=== PATIENT | male | born 1945 | race Two or more races ===

== ENCOUNTER 2018-06-04 11:10 | Outpatient (CLI) | payer MEDICARE | END 2018-06-04 13:10 | disposition home or self-care (01) | LOC: ECT 11:10 | DX: F32.3 Major depressive disorder, single episode, severe with psychotic features (principal); I10 Essential (primary) hypertension; E11.9 Type 2 diabetes mellitus without complications ==

== ENCOUNTER 2018-06-24 06:45 | Outpatient (RCR) | payer MEDICARE ==
[~2018-06-24] VITALS: Ht 162.6 cm; Wt 64.0 kg
[2018-06-24] MEDS ORDERED: Methohexital Sodium Syr 100mg/10ml IVP ONE (06:46)
[2018-06-24] MEDS ORDERED: Methohexital Sodium 500mg Vial IVP ONE (06:46)
[2018-06-24] MEDS ORDERED: Succinylcholine 20mg/ml 10ml vial ONE ×2 (06:46)
[2018-06-24] MEDS ORDERED: NS 500ML ONE ×2 (06:46)
[2018-06-24 11:11] VITALS: BP 156/90
[2018-06-24 11:25] VITALS: BP 177/86
[2018-06-24 11:30] VITALS: BP 168/88
[2018-06-24 11:35] VITALS: BP 168/86
[2018-06-24 11:40] VITALS: BP 170/86
[2018-06-24 12:47] VITALS: BP 156/90
[2018-06-26 10:21] VITALS: BP 144/91
[2018-06-26 10:40] VITALS: BP 193/94
[2018-06-26 10:45] VITALS: BP 178/96
[2018-06-26 10:50] VITALS: BP 175/88
[2018-06-26 10:55] VITALS: BP 161/95
[2018-06-29] MEDS ORDERED: Succinylcholine 20mg/ml 10ml vial ONE (06:00)
[2018-06-29] MEDS ORDERED: NS 500ML ONE (06:00)
[2018-06-29] MEDS ORDERED: Methohexital Sodium Syr 100mg/10ml IVP ONE (06:00)
[2018-06-29 10:41] VITALS: BP 152/80
[2018-06-29] MEDS ORDERED: Atropine Sulfate 0.4mg/ml inj IVP PRN (10:50)
[2018-06-29 11:00] VITALS: BP 156/89
[2018-06-29 11:05] VITALS: BP 146/85
[2018-06-29 11:10] VITALS: BP 134/86
[2018-06-29 11:15] VITALS: BP 143/86
[2018-07-01] MEDS ORDERED: Methohexital Sodium Syr 100mg/10ml IVP ONE (07:00)
[2018-07-01] MEDS ORDERED: Succinylcholine 20mg/ml 10ml vial ONE (07:00)
[2018-07-01] MEDS ORDERED: NS 500ML ONE (07:00)
[2018-07-01 11:18] VITALS: BP 143/83
[2018-07-01 11:35] VITALS: BP 166/78
[2018-07-01 11:40] VITALS: BP 166/80
[2018-07-01 11:45] VITALS: BP 159/76
[2018-07-01 11:50] VITALS: BP 158/74
[2018-07-03] MEDS ORDERED: Methohexital Sodium Syr 100mg/10ml IVP ONE (07:00)
[2018-07-03] MEDS ORDERED: NS 500ML ONE (07:00)
[2018-07-03] MEDS ORDERED: Succinylcholine 20mg/ml 10ml vial ONE (07:00)
[2018-07-03 10:00] VITALS: BP 151/89
[2018-07-03] MEDS ORDERED: Atropine Sulfate 0.4mg/ml inj IVP PRN (10:23)
[2018-07-03 10:25] VITALS: BP 170/95
[2018-07-03 10:30] VITALS: BP 160/97
[2018-07-03 10:35] VITALS: BP 158/95
[2018-07-03 10:40] VITALS: BP 153/87
== END 2018-07-05 | disposition home or self-care (01) ==
LOC: ECT 06:45
DX: F32.3 Major depressive disorder, single episode, severe with psychotic features (principal); I10 Essential (primary) hypertension; E11.9 Type 2 diabetes mellitus without complications
CPT/HCPCS: 90870; J0330; J3490; J7040

== ENCOUNTER 2018-07-06 06:17 | Outpatient (RCR) | payer MEDICARE ==
[~2018-07-06] VITALS: Ht 162.6 cm; Wt 64.0 kg
[2018-07-06] MEDS ORDERED: Succinylcholine 20mg/ml 10ml vial ONE ×2 (06:18)
[2018-07-06] MEDS ORDERED: Methohexital Sodium Syr 100mg/10ml IVP ONE ×2 (06:18)
[2018-07-06] MEDS ORDERED: NS 500ML ONE ×2 (06:18)
[2018-07-06 09:50] VITALS: BP 145/90
[2018-07-06 10:05] VITALS: BP 200/83
[2018-07-06 10:10] VITALS: BP 187/96
[2018-07-06 10:15] VITALS: BP 182/89
[2018-07-06 10:20] VITALS: BP 169/98
[2018-07-07] MEDS ORDERED: Methohexital Sodium Syr 100mg/10ml IVP ONE (10:00)
[2018-07-07] MEDS ORDERED: NS 500ML ONE (10:00)
[2018-07-07] MEDS ORDERED: Succinylcholine 20mg/ml 10ml vial ONE (10:00)
[2018-07-08 10:54] VITALS: BP 164/92
[2018-07-08 11:10] VITALS: BP 185/98
[2018-07-08 11:15] VITALS: BP 170/97
[2018-07-08 11:20] VITALS: BP 170/91
[2018-07-08 11:25] VITALS: BP 168/85
[2018-07-10] MEDS ORDERED: Methohexital Sodium Syr 100mg/10ml IVP ONE (08:00)
[2018-07-10] MEDS ORDERED: NS 500ML ONE (08:00)
[2018-07-10] MEDS ORDERED: Succinylcholine 20mg/ml 10ml vial ONE (08:00)
[2018-07-10 09:37] VITALS: BP 143/80
[2018-07-10 09:52] VITALS: BP 192/91
[2018-07-10 09:57] VITALS: BP 171/87
[2018-07-10 10:02] VITALS: BP 163/80
[2018-07-10 10:07] VITALS: BP 163/80
[2018-07-13] MEDS ORDERED: Succinylcholine 20mg/ml 10ml vial ONE (07:00)
[2018-07-13] MEDS ORDERED: NS 500ML ONE (07:00)
[2018-07-13] MEDS ORDERED: Methohexital Sodium Syr 100mg/10ml IVP ONE (07:00)
[2018-07-13 10:21] VITALS: BP 146/80
[2018-07-13 10:40] VITALS: BP 171/89
[2018-07-13 10:45] VITALS: BP 161/88
[2018-07-13 10:50] VITALS: BP 153/81
[2018-07-13 10:55] VITALS: BP 162/79
[2018-07-15] MEDS ORDERED: Succinylcholine 20mg/ml 10ml vial ONE (08:00)
[2018-07-15] MEDS ORDERED: NS 500ML ONE (08:00)
[2018-07-15] MEDS ORDERED: Methohexital Sodium Syr 100mg/10ml IVP ONE (08:00)
[2018-07-15 11:14] VITALS: BP 141/81
[2018-07-15 11:30] VITALS: BP 161/83
[2018-07-15 11:35] VITALS: BP 161/76
[2018-07-15 11:40] VITALS: BP 161/76
[2018-07-15 11:45] VITALS: BP 170/74
[2018-07-20] MEDS ORDERED: NS 500ML ONE (07:00)
[2018-07-20] MEDS ORDERED: Methohexital Sodium Syr 100mg/10ml IVP ONE (07:00)
[2018-07-20] MEDS ORDERED: Succinylcholine 20mg/ml 10ml vial ONE (07:00)
[2018-07-20 10:27] VITALS: BP 153/94
[2018-07-20 10:40] VITALS: BP 201/98
[2018-07-20 10:45] VITALS: BP 176/90
[2018-07-20 10:50] VITALS: BP 179/89
[2018-07-20 10:55] VITALS: BP 174/92
[2018-07-22] MEDS ORDERED: NS 500ML ONE (07:00)
[2018-07-22] MEDS ORDERED: Methohexital Sodium Syr 100mg/10ml IVP ONE (07:00)
[2018-07-22] MEDS ORDERED: Succinylcholine 20mg/ml 10ml vial ONE (07:00)
[2018-07-22 10:39] VITALS: BP 154/93
[2018-07-22 10:55] VITALS: BP 189/91
[2018-07-22 11:00] VITALS: BP 184/86
[2018-07-22 11:05] VITALS: BP 169/88
[2018-07-22 11:10] VITALS: BP 174/95
[2018-07-29 09:59] VITALS: BP 149/80
[2018-07-29 10:15] VITALS: BP 180/87
[2018-07-29 10:20] VITALS: BP 160/79
[2018-07-29 10:25] VITALS: BP 151/78
[2018-07-29 10:30] VITALS: BP 154/76
== END 2018-08-04 | disposition home or self-care (01) ==
LOC: ECT 06:17
DX: F32.3 Major depressive disorder, single episode, severe with psychotic features (principal)
CPT/HCPCS: 90870; J0330; J7040

== ENCOUNTER 2018-08-05 06:59 | Outpatient (RCR) | payer MEDICARE ==
[~2018-08-05] VITALS: Ht 30.5 cm; Wt 0.5 kg
[2018-08-05] MEDS ORDERED: Succinylcholine 20mg/ml 10ml vial ONE ×3 (07:00)
[2018-08-05] MEDS ORDERED: NS 500ML ONE ×3 (07:00)
[2018-08-05] MEDS ORDERED: Methohexital Sodium Syr 100mg/10ml IVP ONE ×3 (07:00)
[2018-08-05 10:14] VITALS: BP 144/91
[2018-08-05 10:30] VITALS: BP 176/94
[2018-08-05 10:35] VITALS: BP 168/98
[2018-08-05 10:40] VITALS: BP 158/85
[2018-08-05 10:45] VITALS: BP 161/93
[2018-08-10] MEDS ORDERED: Succinylcholine 20mg/ml 10ml vial ONE (07:00)
[2018-08-10] MEDS ORDERED: Methohexital Sodium Syr 100mg/10ml IVP ONE (07:00)
[2018-08-10] MEDS ORDERED: NS 500ML ONE (07:00)
[2018-08-10 10:05] VITALS: BP 150/82
[2018-08-10 10:20] VITALS: BP 174/86
[2018-08-10 10:25] VITALS: BP 160/84
[2018-08-10 10:30] VITALS: BP 167/83
[2018-08-10 10:35] VITALS: BP 161/82
[2018-08-17] MEDS ORDERED: Methohexital Sodium Syr 100mg/10ml IVP ONE (06:00)
[2018-08-17] MEDS ORDERED: Succinylcholine 20mg/ml 10ml vial ONE (06:00)
[2018-08-17] MEDS ORDERED: NS 500ML ONE (06:00)
[2018-08-17 09:36] VITALS: BP 145/81
[2018-08-17 09:50] VITALS: BP 168/86
[2018-08-17 09:55] VITALS: BP 156/89
[2018-08-17 10:00] VITALS: BP 163/73
[2018-08-17 10:05] VITALS: BP 155/71
[2018-08-21] VITALS (10 sets, daily range): BP systolic 138–178; BP diastolic 71–85
[2018-08-21] MEDS ORDERED: NS 500ML ONE (08:00)
[2018-08-21] MEDS ORDERED: Succinylcholine 20mg/ml 10ml vial ONE (08:00)
[2018-08-21] MEDS ORDERED: Methohexital Sodium Syr 100mg/10ml IVP ONE (08:00)
[2018-08-25 09:39] VITALS: BP 158/83
[2018-08-26] MEDS ORDERED: Succinylcholine 20mg/ml 10ml vial ONE (09:00)
[2018-08-26] MEDS ORDERED: Methohexital Sodium Syr 100mg/10ml IVP ONE (09:00)
[2018-08-26] MEDS ORDERED: NS 500ML ONE (09:00)
[2018-08-26 09:56] VITALS: BP 205/99
[2018-08-26 10:01] VITALS: BP 172/81
[2018-08-26 10:06] VITALS: BP 171/78
[2018-08-26 10:11] VITALS: BP 163/76
== END 2018-09-04 | disposition home or self-care (01) ==
LOC: ECT 06:59
DX: F32.3 Major depressive disorder, single episode, severe with psychotic features (principal)
CPT/HCPCS: 90870; J0330; J7040

== ENCOUNTER 2018-09-07 05:06 | Outpatient (RCR) | payer MEDICARE ==
[~2018-09-07] VITALS: Ht 162.6 cm; Wt 64.0 kg
[2018-09-07] MEDS ORDERED: Succinylcholine 20mg/ml 10ml vial ONE (05:07)
[2018-09-07] MEDS ORDERED: Methohexital Sodium Syr 100mg/10ml IVP ONE (05:07)
[2018-09-07] MEDS ORDERED: NS 500ML ONE (05:07)
[2018-09-07 08:57] VITALS: BP 157/91
[2018-09-07 09:08] VITALS: BP 190/100
[2018-09-07 09:13] VITALS: BP 176/88
[2018-09-07 09:18] VITALS: BP 168/89
[2018-09-07 09:23] VITALS: BP 169/92
[2018-09-23] MEDS ORDERED: Methohexital Sodium Syr 100mg/10ml IVP ONE (06:00)
[2018-09-23] MEDS ORDERED: NS 500ML ONE (06:00)
[2018-09-23] MEDS ORDERED: Succinylcholine 20mg/ml 10ml vial ONE (06:00)
[2018-09-23 10:04] VITALS: BP 148/80
[2018-09-23 10:16] VITALS: BP 174/84
[2018-09-23 10:21] VITALS: BP 167/80
[2018-09-23 10:26] VITALS: BP 162/79
[2018-09-23 10:31] VITALS: BP 156/81
== END 2018-10-04 | disposition home or self-care (01) ==
LOC: ECT 05:06
DX: F32.3 Major depressive disorder, single episode, severe with psychotic features (principal)
CPT/HCPCS: 90870; J0330; J7040

== ENCOUNTER 2018-10-14 06:42 | Outpatient (RCR) | payer MEDICARE ==
[~2018-10-14] VITALS: Ht 162.6 cm; Wt 64.0 kg
[~2018-10-14 06:42] MED LIST: Methohexital Sodium Syr 100mg/10ml IVP ONE; NS 500ML ONE; Succinylcholine 20mg/ml 10ml vial ONE
[2018-10-14 10:21] VITALS: BP 144/82
[2018-10-14 10:33] VITALS: BP 145/86
[2018-10-14 10:38] VITALS: BP 163/96
[2018-10-14 10:43] VITALS: BP 151/78
[2018-10-14 10:48] VITALS: BP 149/91
== END 2018-11-04 | disposition home or self-care (01) ==
LOC: ECT 06:42
DX: F32.3 Major depressive disorder, single episode, severe with psychotic features (principal)
CPT/HCPCS: 90870; J0330; J7040

== ENCOUNTER 2018-11-09 07:54 | Outpatient (RCR) | payer MEDICARE ==
[~2018-11-09] VITALS: Ht 162.6 cm; Wt 64.0 kg
[2018-11-09 09:40] VITALS: BP 149/84
[2018-11-09 09:55] VITALS: BP 186/95
[2018-11-09 10:00] VITALS: BP 176/91
[2018-11-09 10:05] VITALS: BP 165/85
[2018-11-09 10:10] VITALS: BP 165/81
[2018-12-02] MEDS ORDERED: Methohexital Sodium Syr 100mg/10ml IVP ONE (07:00)
[2018-12-02] MEDS ORDERED: NS 500ML ONE (07:00)
[2018-12-02] MEDS ORDERED: Succinylcholine 20mg/ml 10ml vial ONE (07:00)
[2018-12-02 09:56] VITALS: BP_SYST 133; BP_SYST 178; BP_DIAS 82; BP_DIAS 91
[2018-12-02 10:01] VITALS: BP 152/86
[2018-12-02 10:06] VITALS: BP 158/83
[2018-12-02 10:16] VITALS: BP 154/86
== END 2018-12-05 | disposition home or self-care (01) ==
LOC: ECT 07:54
DX: F32.3 Major depressive disorder, single episode, severe with psychotic features (principal)
CPT/HCPCS: 90870; J0330; J7040

== ENCOUNTER 2018-12-23 06:26 | Outpatient (RCR) | payer MEDICARE ==
[~2018-12-23] VITALS: Ht 162.6 cm; Wt 64.0 kg
[2018-12-28] MEDS ORDERED: Methohexital Sodium Syr 100mg/10ml IVP ONE (06:00)
[2018-12-28] MEDS ORDERED: Succinylcholine 20mg/ml 10ml vial ONE (06:00)
[2018-12-28] MEDS ORDERED: NS 500ML ONE (06:00)
[2018-12-28 09:47] VITALS: BP 152/91
[2018-12-28 10:05] VITALS: BP 194/104
[2018-12-28 10:10] VITALS: BP 174/104
[2018-12-28 10:15] VITALS: BP 171/91
[2018-12-28 10:20] VITALS: BP 170/96
== END 2019-01-04 | disposition home or self-care (01) ==
LOC: ECT 06:26
DX: F32.3 Major depressive disorder, single episode, severe with psychotic features (principal)
CPT/HCPCS: 90870; J0330; J7040

== ENCOUNTER 2019-01-11 09:09 | Outpatient (RCR) | payer MEDICARE ==
[~2019-01-11] VITALS: Ht 162.6 cm; Wt 64.0 kg
[2019-01-11] MEDS ORDERED: NS 500ML ONE (09:10)
[2019-01-11] MEDS ORDERED: Succinylcholine 20mg/ml 10ml vial ONE (09:10)
[2019-01-11] MEDS ORDERED: Methohexital Sodium Syr 100mg/10ml IVP ONE (09:10)
[2019-01-11 09:45] VITALS: BP 151/86
[2019-01-11 10:00] VITALS: BP 186/91
[2019-01-11 10:05] VITALS: BP 173/90
[2019-01-11 10:10] VITALS: BP 171/90
[2019-01-11 10:15] VITALS: BP 164/86
[2019-01-20] MEDS ORDERED: Succinylcholine 20mg/ml 10ml vial ONE (09:00)
[2019-01-20] MEDS ORDERED: Ketamine 500mg Inj ONE (09:00)
[2019-01-20] MEDS ORDERED: Methohexital Sodium Syr 100mg/10ml IVP ONE (09:00)
[2019-01-20] MEDS ORDERED: NS 500ML ONE (09:00)
[2019-01-20 09:37] VITALS: BP 150/64
[2019-01-20 09:50] VITALS: BP 193/76
[2019-01-20 09:55] VITALS: BP 205/98
[2019-01-20 10:00] VITALS: BP 173/82
[2019-01-20 10:05] VITALS: BP 173/97
[2019-01-27] MEDS ORDERED: NS 500ML ONE (06:00)
[2019-01-27] MEDS ORDERED: Ketamine 500mg Inj ONE (06:00)
[2019-01-27] MEDS ORDERED: Succinylcholine 20mg/ml 10ml vial ONE (06:00)
[2019-01-27 09:58] VITALS: BP 149/88
[2019-01-27 10:11] VITALS: BP 198/101
[2019-01-27 10:16] VITALS: BP 189/94
[2019-01-27 10:21] VITALS: BP 171/104
[2019-01-27 10:26] VITALS: BP 174/99
[2019-02-03] MEDS ORDERED: Ketamine 500mg Inj ONE (06:00)
[2019-02-03] MEDS ORDERED: Succinylcholine 20mg/ml 10ml vial ONE (06:00)
[2019-02-03] MEDS ORDERED: NS 500ML ONE (06:00)
[2019-02-03 09:57] VITALS: BP 149/86
[2019-02-03 10:12] VITALS: BP 214/103
[2019-02-03 10:17] VITALS: BP 193/102
[2019-02-03 10:22] VITALS: BP 181/92
[2019-02-03 10:27] VITALS: BP 178/92
[2019-02-03 10:32] VITALS: BP 160/72
== END 2019-02-04 | disposition home or self-care (01) ==
LOC: ECT 09:09
DX: F32.3 Major depressive disorder, single episode, severe with psychotic features (principal)
CPT/HCPCS: 90870; J0330; J2405; J3490; J7040

== ENCOUNTER 2019-02-15 07:30 | Outpatient (RCR) | payer MEDICARE ==
[~2019-02-15] VITALS: Ht 162.6 cm; Wt 64.0 kg
[2019-02-15] MEDS ORDERED: NS 500ML ONE (07:31)
[2019-02-15] MEDS ORDERED: Ketamine 500mg/10ml vial ONE (07:31)
[2019-02-15] MEDS ORDERED: Succinylcholine 20mg/ml 10ml vial ONE (07:31)
[2019-02-15] MEDS ORDERED: Methohexital Sodium Syr 100mg/10ml IVP ONE (07:31)
[2019-02-15 09:28] VITALS: BP 155/87
[2019-02-15 09:40] VITALS: BP 199/101
[2019-02-15 09:45] VITALS: BP 179/101
[2019-02-15 09:50] VITALS: BP 169/98
[2019-02-15 09:55] VITALS: BP 163/90
[2019-03-01] MEDS ORDERED: Ketamine 500mg/10ml vial ONE (06:00)
[2019-03-01] MEDS ORDERED: NS 500ML ONE (06:00)
[2019-03-01] MEDS ORDERED: Succinylcholine 20mg/ml 10ml vial ONE (06:00)
[2019-03-01 09:17] VITALS: BP 148/79
[2019-03-01 09:30] VITALS: BP 213/101
[2019-03-01 09:35] VITALS: BP 198/99
[2019-03-01 09:40] VITALS: BP 181/96
[2019-03-01 09:45] VITALS: BP 185/96
== END 2019-03-06 | disposition home or self-care (01) ==
LOC: ECT 07:30
DX: F32.3 Major depressive disorder, single episode, severe with psychotic features (principal)
CPT/HCPCS: 90870; J0330; J2405; J3490; J7040

== ENCOUNTER 2019-03-17 06:16 | Outpatient (RCR) | payer MEDICARE ==
[~2019-03-17] VITALS: Ht 30.5 cm; Wt 0.5 kg
[2019-03-17] MEDS ORDERED: NS 500ML ONE ×2 (06:17)
[2019-03-17] MEDS ORDERED: Ketamine 500mg/10ml vial ONE ×2 (06:17)
[2019-03-17] MEDS ORDERED: Succinylcholine 20mg/ml 10ml vial ONE ×2 (06:17)
[2019-03-17 10:25] VITALS: BP 133/90
[2019-03-17 10:36] VITALS: BP 224/114
[2019-03-17 10:41] VITALS: BP 213/110
[2019-03-17 10:46] VITALS: BP 195/103
[2019-03-17 10:51] VITALS: BP 179/99
[2019-04-02 09:15] VITALS: BP 144/81
[2019-04-02 09:27] VITALS: BP 203/104
[2019-04-02 09:32] VITALS: BP 203/98
[2019-04-02 09:37] VITALS: BP 184/91
[2019-04-02 09:42] VITALS: BP 168/93
== END 2019-04-06 | disposition home or self-care (01) ==
LOC: ECT 06:16
DX: F32.3 Major depressive disorder, single episode, severe with psychotic features (principal)
CPT/HCPCS: 90870; J2405

== ENCOUNTER 2019-05-10 07:01 | Outpatient (RCR) | payer MEDICARE ==
[~2019-05-10] VITALS: Ht 162.6 cm; Wt 64.0 kg
[2019-05-10] MEDS ORDERED: Ketamine 500mg/10ml vial ONE (07:02)
[2019-05-10] MEDS ORDERED: NS 500ML ONE (07:02)
[2019-05-10] MEDS ORDERED: Succinylcholine 20mg/ml 10ml vial ONE (07:02)
[2019-05-10 09:54] VITALS: BP 142/83
[2019-05-10 10:10] VITALS: BP 195/95
[2019-05-10 10:15] VITALS: BP 192/95
[2019-05-10 10:20] VITALS: BP 181/98
[2019-05-10 10:25] VITALS: BP 177/98
[2019-05-24] MEDS ORDERED: Ketamine 500mg/10ml vial ONE (06:00)
[2019-05-24] MEDS ORDERED: NS 500ML ONE (06:00)
[2019-05-24] MEDS ORDERED: Succinylcholine 20mg/ml 10ml vial ONE (06:00)
[2019-05-24 09:27] VITALS: BP 142/95
[2019-05-24 09:40] VITALS: BP 190/109
[2019-05-24 09:45] VITALS: BP 194/94
[2019-05-24 09:50] VITALS: BP 182/91
[2019-05-24 09:55] VITALS: BP 173/95
== END 2019-06-05 | disposition home or self-care (01) ==
LOC: ECT 07:01
DX: F32.3 Major depressive disorder, single episode, severe with psychotic features (principal)
CPT/HCPCS: 90870; J0330; J2405; J3490; J7040

== ENCOUNTER 2019-06-07 05:54 | Outpatient (RCR) | payer MEDICARE ==
[~2019-06-07] VITALS: Ht 162.6 cm; Wt 64.0 kg
[2019-06-07] MEDS ORDERED: Succinylcholine 20mg/ml 10ml vial ONE (05:55)
[2019-06-07] MEDS ORDERED: NS 500ML ONE (05:55)
[2019-06-07] MEDS ORDERED: Ketamine 500mg/10ml vial ONE (05:55)
[2019-06-07 09:44] VITALS: BP 135/80
[2019-06-07 09:57] VITALS: BP 197/97
[2019-06-07 10:02] VITALS: BP 192/95
[2019-06-07 10:07] VITALS: BP 185/92
[2019-06-07 10:12] VITALS: BP 168/92
[2019-06-23] MEDS ORDERED: Ketamine 500mg/10ml vial ONE (06:00)
[2019-06-23] MEDS ORDERED: Succinylcholine 20mg/ml 10ml vial ONE (06:00)
[2019-06-23] MEDS ORDERED: NS 500ML ONE (06:00)
[2019-06-23 09:28] VITALS: BP 149/87
[2019-06-23 09:45] VITALS: BP 192/94
[2019-06-23 09:50] VITALS: BP 183/93
[2019-06-23 09:55] VITALS: BP 180/86
[2019-06-23 10:00] VITALS: BP 171/89
== END 2019-07-06 | disposition home or self-care (01) ==
LOC: ECT 05:54
DX: F32.3 Major depressive disorder, single episode, severe with psychotic features (principal)
CPT/HCPCS: 90870; J0330; J2405; J3490; J7040

== ENCOUNTER 2019-07-09 06:01 | Outpatient (RCR) | payer MEDICARE ==
[~2019-07-09] VITALS: Ht 162.6 cm; Wt 64.0 kg
[2019-07-09] MEDS ORDERED: Succinylcholine 20mg/ml 10ml vial ONE (06:02)
[2019-07-09] MEDS ORDERED: NS 500ML ONE (06:02)
[2019-07-09] MEDS ORDERED: Ketamine 500mg/10ml vial ONE (06:02)
[2019-07-09 09:56] VITALS: BP 143/90
[2019-07-09 10:10] VITALS: BP 187/96
[2019-07-09 10:15] VITALS: BP 185/93
[2019-07-09 10:20] VITALS: BP 174/94
[2019-07-09 10:25] VITALS: BP 174/93
[2019-07-26] MEDS ORDERED: NS 500ML ONE (08:00)
[2019-07-26] MEDS ORDERED: Methohexital Sodium Syr 100mg/10ml IVP ONE (08:00)
[2019-07-26] MEDS ORDERED: Succinylcholine 20mg/ml 10ml vial ONE (08:00)
[2019-07-26 09:28] VITALS: BP 150/90
[2019-07-26 09:44] VITALS: BP 166/79
[2019-07-26 09:49] VITALS: BP 160/74
[2019-07-26 09:54] VITALS: BP 152/72
[2019-07-26 09:59] VITALS: BP 148/78
== END 2019-08-05 | disposition home or self-care (01) ==
LOC: ECT 06:01
DX: F32.3 Major depressive disorder, single episode, severe with psychotic features (principal)
CPT/HCPCS: 90870; J0330; J2405; J3490; J7040

== ENCOUNTER 2019-08-16 05:40 | Outpatient (RCR) | payer MEDICARE ==
[~2019-08-16] VITALS: Ht 162.6 cm; Wt 64.0 kg
[2019-08-16] MEDS ORDERED: NS 500ML ONE (05:41)
[2019-08-16] MEDS ORDERED: Ketamine 500mg/10ml vial ONE (05:41)
[2019-08-16] MEDS ORDERED: Succinylcholine 20mg/ml 10ml vial ONE (05:41)
[2019-08-16 09:28] VITALS: BP 150/92
[2019-08-16 09:42] VITALS: BP 185/101
[2019-08-16 09:47] VITALS: BP 179/85
[2019-08-16 09:52] VITALS: BP 168/97
[2019-08-16 09:57] VITALS: BP 152/84
== END 2019-09-05 | disposition home or self-care (01) ==
LOC: ECT 05:40
DX: F32.3 Major depressive disorder, single episode, severe with psychotic features (principal)
CPT/HCPCS: 90870; J0330; J2405; J3490; J7040

== ENCOUNTER 2019-09-06 07:03 | Outpatient (RCR) | payer MEDICARE ==
[~2019-09-06] VITALS: Ht 162.6 cm; Wt 64.0 kg
[2019-09-06] MEDS ORDERED: Succinylcholine 20mg/ml 10ml vial ONE (07:04)
[2019-09-06] MEDS ORDERED: Ketamine 500mg/10ml vial ONE (07:04)
[2019-09-06] MEDS ORDERED: NS 500ML ONE (07:04)
[2019-09-08 11:08] VITALS: BP 142/81
[2019-09-08 11:22] VITALS: BP 188/91
[2019-09-08 11:27] VITALS: BP 181/99
[2019-09-08 11:32] VITALS: BP 168/90
[2019-09-08 11:37] VITALS: BP 169/89
== END 2019-10-05 | disposition home or self-care (01) ==
LOC: ECT 07:03
DX: F32.3 Major depressive disorder, single episode, severe with psychotic features (principal)
CPT/HCPCS: 90870; J0330; J2405; J3490; J7040

== ENCOUNTER 2019-10-06 08:43 | Outpatient (RCR) | payer MEDICARE ==
[~2019-10-06] VITALS: Ht 162.6 cm; Wt 64.0 kg
[2019-10-11] MEDS ORDERED: Succinylcholine 20mg/ml 10ml vial ONE (06:00)
[2019-10-11] MEDS ORDERED: Ketamine 500mg/10ml vial ONE (06:00)
[2019-10-11] MEDS ORDERED: NS 500ML ONE (06:00)
[2019-10-11 10:07] VITALS: BP 144/89
[2019-10-11] MEDS ORDERED: Atropine Sulfate 0.4mg/ml inj IVP PRN (10:24)
[2019-10-11] MEDS ORDERED: Lidocaine 2% 100mg/5ml Carp IV PRN (10:24)
[2019-10-11 10:25] VITALS: BP 159/93
[2019-10-11 10:30] VITALS: BP 165/90
[2019-10-11 10:35] VITALS: BP 157/87
[2019-10-11 10:40] VITALS: BP 162/76
== END 2019-11-05 | disposition home or self-care (01) ==
LOC: ECT 08:43
DX: F32.3 Major depressive disorder, single episode, severe with psychotic features (principal)
CPT/HCPCS: 90870; J0330; J2405; J3490; J7040

== ENCOUNTER 2019-11-08 12:21 | Outpatient (RCR) | payer MEDICARE ==
[~2019-11-08] VITALS: Ht 30.5 cm; Wt 0.5 kg
[2019-11-08] VITALS (7 sets, daily range): BP systolic 127–193; BP diastolic 72–99
[~2019-11-08 12:21] MED LIST changes: +Atropine Sulfate 0.4mg/ml inj IVP PRN; +Lidocaine 2% 100mg/5ml Carp IV PRN; -Methohexital Sodium Syr 100mg/10ml IVP ONE; -NS 500ML ONE; -Succinylcholine 20mg/ml 10ml vial ONE
[2019-11-08] MEDS ORDERED: NS 500ML ONE (12:22)
[2019-11-08] MEDS ORDERED: Ketamine 500mg/10ml vial ONE (12:22)
[2019-11-08] MEDS ORDERED: Succinylcholine 20mg/ml 10ml vial ONE (12:22)
== END 2019-12-06 | disposition home or self-care (01) ==
LOC: ECT 12:21
DX: F32.3 Major depressive disorder, single episode, severe with psychotic features (principal)
CPT/HCPCS: 90870; J0330; J2405; J3490; J7040

== ENCOUNTER 2019-12-10 07:35 | Outpatient (RCR) | payer MEDICARE ==
[~2019-12-10] VITALS: Ht 30.5 cm; Wt 0.5 kg
[2019-12-10] MEDS ORDERED: Ketamine 500mg/10ml vial ONE (07:36)
[2019-12-10] MEDS ORDERED: NS 500ML ONE (07:36)
[2019-12-10] MEDS ORDERED: Succinylcholine 20mg/ml 10ml vial ONE (07:36)
[2019-12-15] VITALS (7 sets, daily range): BP systolic 132–192; BP diastolic 78–99
[2020-01-03] VITALS (7 sets, daily range): BP systolic 148–184; BP diastolic 82–98
[2020-01-03] MEDS ORDERED: NS 500ML ONE (09:00)
[2020-01-03] MEDS ORDERED: Ketorolac 60mg Inj IM ONE (09:00)
[2020-01-03] MEDS ORDERED: Ketamine 500mg/10ml vial ONE (09:00)
[2020-01-03] MEDS ORDERED: Succinylcholine 20mg/ml 10ml vial ONE (09:00)
[2020-01-03] MEDS ORDERED: Atropine Sulfate 0.4mg/ml inj IVP PRN (09:49)
== END 2020-01-05 | disposition home or self-care (01) ==
LOC: ECT 07:35
DX: F32.3 Major depressive disorder, single episode, severe with psychotic features (principal)
CPT/HCPCS: 90870; J0330; J2405; J3490; J7040

== ENCOUNTER 2020-01-10 05:05 | Outpatient (RCR) | payer MEDICARE ==
[2020-01-10] VITALS (7 sets, daily range): BP systolic 147–199; BP diastolic 88–102
[~2020-01-10] VITALS: Ht 162.6 cm; Wt 64.0 kg
[2020-01-10] MEDS ORDERED: Ketamine HCl 50mg/ml 1ml Syr ONE (05:06)
[2020-01-10] MEDS ORDERED: NS 500ML ONE ×2 (05:06)
[2020-01-10] MEDS ORDERED: Ketamine 500mg/10ml vial ONE (05:06)
[2020-01-10] MEDS ORDERED: Succinylcholine 20mg/ml 10ml vial ONE ×2 (05:06)
[2020-01-10] MEDS ORDERED: Atropine Sulfate 0.4mg/ml inj IVP PRN (10:20)
[2020-01-17] VITALS (7 sets, daily range): BP systolic 149–184; BP diastolic 80–100
[2020-01-17] MEDS ORDERED: Ketamine 500mg/10ml vial ONE ×2 (09:00)
[2020-01-17] MEDS ORDERED: NS 500ML ONE (09:00)
[2020-01-17] MEDS ORDERED: Succinylcholine 20mg/ml 10ml vial ONE (09:00)
[2020-01-26] VITALS (7 sets, daily range): BP systolic 153–180; BP diastolic 86–108
[2020-01-26] MEDS ORDERED: Ketamine 500mg/10ml vial ONE (08:00)
[2020-01-26] MEDS ORDERED: Sugammadex Sodium 200mg/2ml vial IV ONE (08:00)
[2020-01-26] MEDS ORDERED: NS 500ML ONE (08:00)
[2020-01-26] MEDS ORDERED: Rocuronium Bromide 50mg/5ml Inj IV ONE (08:00)
== END 2020-02-05 | disposition home or self-care (01) ==
LOC: ECT 05:05
DX: F32.3 Major depressive disorder, single episode, severe with psychotic features (principal)
CPT/HCPCS: 90870; J0330; J2405; J3490; J7040

== ENCOUNTER 2020-02-07 06:46 | Outpatient (RCR) | payer MEDICARE ==
[2020-02-07] VITALS (7 sets, daily range): BP systolic 157–188; BP diastolic 80–98
[~2020-02-07] VITALS: Ht 162.6 cm; Wt 64.0 kg
[2020-02-07] MEDS ORDERED: Sugammadex Sodium 200mg/2ml vial IV ONE (06:47)
[2020-02-07] MEDS ORDERED: NS 500ML ONE (06:47)
[2020-02-07] MEDS ORDERED: Succinylcholine 20mg/ml 10ml vial ONE (06:47)
[2020-02-07] MEDS ORDERED: Ketamine 500mg/10ml vial ONE (06:47)
[2020-02-07] MEDS ORDERED: Caffeine Citrate 60mg/3ml vial ONE (06:47)
[2020-02-07] MEDS ORDERED: Rocuronium Bromide 50mg/5ml Inj IV ONE (06:47)
[2020-02-07] MEDS ORDERED: Caffeine Citrate 60mg/3ml vial INJ ONE (10:02)
[2020-02-23] VITALS (7 sets, daily range): BP systolic 151–198; BP diastolic 79–97
[2020-02-23] MEDS ORDERED: Ketamine 500mg/10ml vial ONE (06:00)
[2020-02-23] MEDS ORDERED: Succinylcholine 20mg/ml 10ml vial ONE (06:00)
[2020-02-23] MEDS ORDERED: Caffeine Citrate 60mg/3ml vial ONE (06:00)
[2020-02-23] MEDS ORDERED: NS 500ML ONE (06:00)
[2020-02-23] MEDS ORDERED: Caffeine Citrate 60mg/3ml vial INJ ONE (09:53)
== END 2020-03-06 | disposition home or self-care (01) ==
LOC: ECT 06:46
DX: F32.3 Major depressive disorder, single episode, severe with psychotic features (principal)
CPT/HCPCS: 90870; J0330; J0706; J2405; J3490; J7040

== ENCOUNTER 2020-03-13 05:41 | Outpatient (RCR) | payer MEDICARE ==
[~2020-03-13] VITALS: Ht 30.5 cm; Wt 0.5 kg
[2020-03-13] VITALS (7 sets, daily range): BP systolic 145–192; BP diastolic 84–103
[2020-03-13] MEDS ORDERED: Succinylcholine 20mg/ml 10ml vial ONE (05:42)
[2020-03-13] MEDS ORDERED: Caffeine Citrate 60mg/3ml vial ONE (05:42)
[2020-03-13] MEDS ORDERED: Rocuronium Bromide 50mg/5ml Inj IV ONE (05:42)
[2020-03-13] MEDS ORDERED: NS 500ML ONE (05:42)
[2020-03-13] MEDS ORDERED: Ketamine 500mg/10ml vial ONE (05:42)
[2020-03-13] MEDS ORDERED: Sugammadex Sodium 200mg/2ml vial IV ONE (05:42)
[2020-03-22] VITALS (7 sets, daily range): BP systolic 147–193; BP diastolic 88–109
[2020-03-22] MEDS ORDERED: Caffeine Citrate 60mg/3ml vial ONE (06:00)
[2020-03-22] MEDS ORDERED: Ketamine 500mg/10ml vial ONE (06:00)
[2020-03-22] MEDS ORDERED: Sugammadex Sodium 200mg/2ml vial IV ONE (06:00)
[2020-03-22] MEDS ORDERED: Rocuronium Bromide 50mg/5ml Inj IV ONE (06:00)
[2020-03-22] MEDS ORDERED: NS 500ML ONE (06:00)
[2020-03-22] MEDS ORDERED: Caffeine Citrate 60mg/3ml vial INJ ONE (10:18)
[2020-03-29] VITALS (7 sets, daily range): BP systolic 146–194; BP diastolic 59–100
[2020-03-29] MEDS ORDERED: Sugammadex Sodium 200mg/2ml vial IV ONE (09:00)
[2020-03-29] MEDS ORDERED: NS 500ML ONE (09:00)
[2020-03-29] MEDS ORDERED: Caffeine Citrate 60mg/3ml vial ONE (09:00)
[2020-03-29] MEDS ORDERED: Rocuronium Bromide 50mg/5ml Inj IV ONE (09:00)
[2020-03-29] MEDS ORDERED: Succinylcholine 20mg/ml 10ml vial ONE (09:00)
[2020-03-29] MEDS ORDERED: Ketamine 500mg/10ml vial ONE (09:00)
[2020-04-05] VITALS (10 sets, daily range): BP systolic 141–206; BP diastolic 93–106
[2020-04-05] MEDS ORDERED: Sugammadex Sodium 200mg/2ml vial IV ONE (09:00)
[2020-04-05] MEDS ORDERED: Rocuronium Bromide 50mg/5ml Inj IV ONE (09:00)
[2020-04-05] MEDS ORDERED: NS 500ML ONE (09:00)
[2020-04-05] MEDS ORDERED: Ketamine HCl 50mg/ml 1ml Syr ONE (09:00)
[2020-04-05] MEDS ORDERED: Caffeine Citrate 60mg/3ml vial ONE (09:00)
== END 2020-04-06 | disposition home or self-care (01) ==
LOC: ECT 05:41
DX: F32.3 Major depressive disorder, single episode, severe with psychotic features (principal)
CPT/HCPCS: 90870; J0330; J0706; J2405; J3490; J7040

== ENCOUNTER 2020-04-14 05:11 | Outpatient (RCR) | payer MEDICARE ==
[2020-04-14] VITALS (7 sets, daily range): BP systolic 139–186; BP diastolic 95–100
[~2020-04-14] VITALS: Ht 162.6 cm; Wt 64.0 kg
[2020-04-14] MEDS ORDERED: Ketamine 500mg/10ml vial ONE (05:12)
[2020-04-14] MEDS ORDERED: Rocuronium Bromide 50mg/5ml Inj IV ONE (05:12)
[2020-04-14] MEDS ORDERED: NS 500ML ONE (05:12)
[2020-04-14] MEDS ORDERED: Sugammadex Sodium 200mg/2ml vial IV ONE (05:12)
[2020-04-14] MEDS ORDERED: Caffeine Citrate 60mg/3ml vial ONE (05:12)
[2020-04-28] VITALS (8 sets, daily range): BP systolic 138–186; BP diastolic 74–92
[2020-04-28] MEDS ORDERED: Ketamine 500mg/10ml vial ONE (06:00)
[2020-04-28] MEDS ORDERED: Sugammadex Sodium 200mg/2ml vial IV ONE (06:00)
[2020-04-28] MEDS ORDERED: Caffeine Citrate 60mg/3ml vial ONE (06:00)
[2020-04-28] MEDS ORDERED: Rocuronium Bromide 50mg/5ml Inj IV ONE (06:00)
[2020-04-28] MEDS ORDERED: NS 500ML ONE (06:00)
== END 2020-05-07 | disposition home or self-care (01) ==
LOC: ECT 05:11
DX: F32.3 Major depressive disorder, single episode, severe with psychotic features (principal)
CPT/HCPCS: 90870; J0706; J2405; J3490; J7040

== ENCOUNTER 2020-05-19 05:39 | Outpatient (RCR) | payer MEDICARE ==
[2020-04-28 10:26] VITALS: BP 141/74
== END 2020-06-04 | disposition home or self-care (01) ==
LOC: ECT 05:39
DX: Z53.9 Procedure and treatment not carried out, unspecified reason (principal)